=== PATIENT | male | born 1975 | race Caucasian/White ===

== ENCOUNTER 2024-04-22 00:48 | Emergency (ER) | payer MEDICAID, SELFPAY ==
[2024-04-22 01:16] VITALS: BP 180/122; BP 184/138; PULSE 110; RESP 18; TEMP 36.8; O2SAT 96; BMI 32.8
--- NOTE | 2024-04-22 01:23 | PD.EDRME ---
Rapid Medical Screening Exam RME Arrival date/time: 04/22/24 00:48 48-year-old male presents emergency department with at bedside reporting accidentally ingested small water bottle with bleach which caused him to vomit approximately 6 times afterwards. Chief Complaint: Nausea/Vomiting/Diarrhea Time Seen by Provider: 04/22/24 01:06 Vital signs: Vital Signs Temperature 98.3 F 04/22/24 01:16 Pulse Rate 110 H 04/22/24 01:16 Respiratory Rate 18 04/22/24 01:16 Blood Pressure 180/122 H 04/22/24 01:16 Pulse Oximetry (%) 96 04/22/24 01:16 Oxygen Delivery Method Room Air 04/22/24 01:16 Vital signs reviewed by provider: Yes
[2024-04-22 01:31] VITALS: BP 149/111
--- NOTE | 2024-04-22 01:56 | PC.NURSE ---
SPOKE TO [place] FROM POISON CONTROL, AND INFORMED THEM OF PT'S C/O INGESTING SMALL AMOUNT OF BLEACH. PER POISON CONTROL RECOMMENDATIONS ARE SUPPORTIVE CARE AND EXPECT GI DISCOMFORT. MD CARRINGTON MADE AWARE.
--- NOTE | 2024-04-22 02:30 | EDNOTE_ITS ---
ED General RME/HPI General Chief complaint: Nausea/Vomiting/Diarrhea Stated complaint: Ingested Bleach Time Seen by Provider: 04/22/24 01:06 Arrival date/time: 04/22/24 00:48 RME / HPI RME / HPI narrative: 04/22/24 00:48 48-year-old male presents emergency department with at bedside reporting accidentally ingested small water bottle with bleach which caused him to vomit approximately 6 times afterwards. 48-year-old male otherwise healthy presents to the emergency department with accidental ingestion of a small amount of household bleach. He did have 6 episodes of emesis afterwards. He currently has little to no complaints. he did a Google search which advised him to come to the emergency department Related Data Previous Rx's ?Medication ?Instructions ?Recorded erythromycin 5 mg/gram (0.5 %) eye 0.5 inch ophthalmic (eye) BID #1 g 06/18/17 ointment famotidine 40 mg tablet 40 mg PO BID #6 tabs 04/22/24 ondansetron 4 mg disintegrating 4 mg PO Q8H PRN nausea and 04/22/24 tablet vomiting #10 tabs Allergies Allergy/AdvReac Type Severity Reaction Status Date / Time No Known Allergies Allergy Uncoded 06/18/17 15:11 Review of Systems Review of Systems Systems Reviewed: All systems reviewed, normal except as documented ED Exam Narrative Physical exam: GENERAL APPEARANCE: AxOx4, generally well-appearing, no acute distress. HEENT: NC, AT. MMM. EOMI, clear conjunctiva, oropharynx clear. NECK: Supple without lymphadenopathy. No stiffness or restricted ROM. HEART: Normal rate and regular rhythm, normal S1/S1, no m/r/g LUNGS: CTAB, moving air well. No crackles or wheezes are heard. ABDOMEN: Soft, nontender, nondistended with good bowel sounds heard. BACK: No midline C/T/L spine pain or deformity, No CVAT, no obvious deformity. EXTREMITIES: Without cyanosis, clubbing or edema. MUSCULOSKELETAL: FROM of all major joints, no chest tenderness NEUROLOGICAL: Grossly nonfocal. Alert and oriented, moving all 4 extremities. CN not formally tested but appear grossly intact. Observed to ambulate with normal gait. Skin: Warm and dry without any rash. Course Quality Measures none Orders Category Date Time Status EKG (ED ONLY) *Do not use* NOW Care 04/22/24 01:46 Completed EKG (ED Only) Stat Exams 04/22/24 01:46 Ordered Vital Signs Vital signs: Vital Signs Temperature 98.3 F 04/22/24 01:16 Pulse Rate 110 H 04/22/24 01:16 Respiratory Rate 18 04/22/24 01:16 Blood Pressure 180/122 H 04/22/24 01:16 Pulse Oximetry (%) 96 04/22/24 01:16 Oxygen Delivery Method Room Air 04/22/24 01:16 Procedures -ED EKG Interpretation #1: Date of EK04/22/24 Time of EK:55 Rate: 107 Interpretation: Interpreted by me EKG Impression: No acute ST-T changes, Sinus tachycardia, Normal intervals and Normal axis MDM Patient data External records reviewed:: [facility] previous records Clinical information provided by:: patient Social determinants that could affect healthcare access:: none Patient has the following chronic illnesses:: None How is presenting disease/condition affected by chronic disease/condition?: no chronic disease Evaluation data The following diagnostics were reviewed and interpreted by me:: EKG tracing(s) Lab and/or radiology exams considered but not ordered:: None Interpretation Summary: Not applicable Medications Medications considered but not ordered:: None Medication administrations:: None Consultations Consultation(s) initiated? (list below): Yes Consultation #1 (Physician, Specialty, Details): Patient control was contacted and agrees that this is a nontoxic ingestion symptomatic management. Diagnosis Differential Diagnosis ED Complaint MDM: Accidental ingestion, gastritis, esophagitis Most likely diagnosis given after review of the tests above:: See below Admission Indicated Admission indicated?: not indicated Explain why admission is indicated or not indicated:: As per narrative Admission Request Was there a request for admission?: No Disposition Plan Disposition Plan: Discharge Discharge Attestation Discharge Attestation: The patient and all family members were given an opportunity to ask questions and understood the discharge instructions. Discharge instructions specifically effects, indications for sooner follow up or return to the emergency department, and the expected course of current diagnosis. Patient condition: Stable Medical Decision Making MDM Narrative MDM Narrative: Mr. Mae presents emergency department with ingestion of bleach of a nontoxic amount. At this point further workup is not indicated is clinically stable, he can be treated as an outpatient with symptomatic management. Differential Diagnosis Differential Diagnosis: Accidental ingestion, gastritis, esophagitis Discharge Plan Plan Patient Disposition: HOME (Self Care) Prescriptions/Referrals Prescriptions/Med Rec: New ondansetron 4 mg tablet,disintegrating 4 mg PO Q8H PRN (Reason: nausea and vomiting) Qty: 10 0RF famotidine 40 mg tablet 40 mg PO BID Qty: 6 0RF No Action erythromycin 5 mg/gram (0.5 %) ointment 0.5 inch OPHTHALMIC BID Qty: 1 0RF Problem List Clinical Impression: Bleach ingestion Patient/Caregiver Discharge Instructions Education Materials: First Aid: Poisoning Additional Instructions: Household bleach it is quite diluted compared to industrial bleach, you does not ingest a dangerous amount. You can have some stomach upset and nausea associated with it. Please follow a bland diet for the next 24 hours. You can follow-up with your primary care doctor in 2 to 3 days if symptoms persist. Feel free return to emergency department sooner symptoms worsen or if you notice any new, concerning issues Print Language: Kiswahili Stand Alone Forms: [employer] Award Info., Patient Portal Info Letter
== END 2024-04-22 02:11 | disposition home or self-care (01) ==
LOC: SERX 02:13
PROVIDERS: Emergency Provider Emergency Medicine
DX: T54.91XA Toxic effect of unspecified corrosive substance, accidental (unintentional), initial encounter (principal); R11.11 Vomiting without nausea
CPT/HCPCS: 80053; 80307; 80320; 80329; 85025; 93005; 99283; G0480

== ENCOUNTER 2024-06-21 17:50 | Emergency (ER) | payer MEDICAID, SELFPAY ==
[2024-06-21 18:21] VITALS: BP 153/96; PULSE 100; RESP 18; TEMP 37.2; O2SAT 99; BMI 28.7
[2024-06-21] MEDS: NAPROXEN 250 MG TABLET 500 MG PO (18:57)
--- NOTE | 2024-06-21 18:58 | EDNOTE_ITS ---
Upper Respiratory Inf. RME/HPI General Chief Complaint: Flu Like Symptoms Stated Complaint: COUGH, CONGESTION, BODYACHES Time Seen by Provider: 06/21/24 18:31 Arrival date/time: 06/21/24 17:50 49M with no significant PMH presents to ED with 3 days of cough, nasal congestion, and body aches. Limitations: no limitations Related Data Previous Rx's ?Medication ?Instructions ?Recorded erythromycin 5 mg/gram (0.5 %) eye 0.5 inch ophthalmic (eye) BID #1 g 06/18/17 ointment famotidine 40 mg tablet 40 mg PO BID #6 tabs 5 ondansetron 4 mg disintegrating 4 mg PO Q8H PRN nausea and 04/22/24 tablet vomiting #10 tabs Allergies Allergy/AdvReac Type Severity Reaction Status Date / Time No Known Allergies Allergy Uncoded 06/18/17 15:11 Review of Systems Review of Systems Systems Reviewed: All systems reviewed, normal except as documented Constitutional Constitutional: Reports system reviewed and no additional complaints, except as documented, Reports as per HPI, Reports body ache(s), Denies fever(s) and Denies headache(s) ENT Ears, Nose, Mouth, and Throat: Reports as per HPI, Denies disequilibrium, Denies headache(s) and Reports nasal congestion Cardiovascular Cardiovascular: Reports system reviewed and no additional complaints, except as documented, Denies chest pain and Denies dyspnea Respiratory Respiratory: Reports system reviewed and no additional complaints, except as documented, Reports as per HPI, Reports cough and Denies dyspnea Gastrointestinal Gastrointestinal: Reports system reviewed and no additional complaints, except as documented, Denies abdominal pain, Denies nausea and Denies vomiting Neurologic Neurologic: Reports system reviewed and no additional complaints, except as documented, Denies confusion, Denies disequilibrium and Denies headache(s) Psychiatric Psychiatric: Denies confusion Past Medical History Past Medical History CARDIAC: Negative Congestive Heart Failure RESPIRATORY: Negative Chronic Obstructive Pulmonary Disease (COPD) GENITOURINARY: Negative Renal Disease ENDOCRINE: Negative Diabetes Mellitus Type 1 or Diabetes Mellitus Type 2 Social History SMOKING STATUS: Light (< 1 pack/day) ED Exam General Limitations: Present no limitations General appearance: Present alert and in no apparent distress Head Head exam: Present atraumatic Eye Eye exam: Present normal appearance, PERRL and EOMI ENT ENT exam: Present normal exam, normal oropharynx and mucous membranes moist Neck Neck exam: Present normal inspection, full ROM and trachea midline Chest Chest inspection: Present normal inspection and symmetric chest wall rise Respiratory Respiratory exam: Present normal lung sounds bilaterally Cardiovascular Cardiovascular exam: Present regular rate, normal rhythm and normal heart sounds Abdominal Exam Abdominal exam: Present soft and normal bowel sounds Extremities Exam Extremities exam: Present normal inspection and full ROM Back Exam Back exam: Present normal inspection and full ROM Neurological Exam Neurological exam: Present alert, oriented X3 and CN II-XII intact Psychiatric Psychiatric exam: Present normal affect and normal mood Skin Skin exam: Present warm, dry, intact and normal color Course Quality Measures none Orders Category Date Time Status Bedside Influenza A&B Antigen Test NOW Care 06/21/24 18:12 Active Naproxen [Naprosyn] Med 06/21/24 18:32 Discontinued 500 mg PO X1 ONE Vital Signs Vital signs: Vital Signs Temperature 98.9 F 06/21/24 18:21 Pulse Rate 100 06/21/24 18:21 Respiratory Rate 18 06/21/24 18:21 Blood Pressure 153/96 H 06/21/24 18:21 Pulse Oximetry (%) 99 06/21/24 18:21 Oxygen Delivery Method Room Air 06/21/24 18:21 O2 at 99% on RA and WNLs Upper Respiratory Infection MDM Narrative MDM Narrative:: 49M with no significant PMH presents to ED with 3 days of cough, nasal congestio n, and body aches. Physical exam reveals nasal congestion, but clear lungs. Patient is afebrile, calm, and alert. Flu B+. Patient data External records reviewed:: [facility] previous records Clinical information provided by:: patient Social determinants that could affect healthcare access:: none Patient has the following chronic illnesses:: none How is presenting disease/condition affected by chronic disease/condition?: no chronic disease Evaluation data The following diagnostics were reviewed and interpreted by me:: lab results Lab and/or radiology exams considered but not ordered:: ordered Interpretation Summary: above Medications / Prescriptions Medications or Prescriptions considered but not ordered:: ordered Medication administrations:: Medication Administration History Discontinued Medications Naproxen (Naproxen 250 Mg Tablet) 500 mg PO X1 ONE Stop: 06/21/24 18:33 above Consultations Consultation(s) initiated? (list below): No Diagnosis Upper Respiratory Differential Diagnosis: upper respiratory infection, croup, otitis media, sinusitis, viral infection, bronchitis, influenza and pharyngitis Most likely diagnosis given after review of the tests above:: flu B Admission Indicated Admission indicated?: not indicated Admission Request Was there a request for admission?: No Disposition Plan Disposition Plan: Discharge Discharge Attestation Discharge Attestation: The patient and all family members were given an opportunity to ask questions and understood the discharge instructions. Discharge instructions specifically effects, indications for sooner follow up or return to the emergency department, and the expected course of current diagnosis. Patient condition: Stable Discharge Plan Plan Patient Disposition: HOME (Self Care) Disposition Comment: Stable Prescriptions/Referrals Prescriptions/Med Rec: No Action erythromycin 5 mg/gram (0.5 %) ointment 0.5 inch OPHTHALMIC BID Qty: 1 0RF ondansetron 4 mg tablet,disintegrating 4 mg PO Q8H PRN (Reason: nausea and vomiting) Qty: 10 0RF famotidine 40 mg tablet 40 mg PO BID Qty: 6 0RF Problem List Clinical Impression: Influenza B Patient/Caregiver Discharge Instructions Education Materials: ED Influenza (Adult) Additional Instructions: Please follow-up with PCP within 24-48 hours and return immediately if symptoms worsen. Ibuprofen/Tylenol can be used simultaneously for greater fever/pain control. Benadryl is good for cough, congestion, and sleep. Print Language: [place] Stand Alone Forms: Patient Portal Info Letter ANTOINETTE/LUSTER APPLICATOR Supervising Physician ANTOINETTE/MAX Supervising Physician: Dr. Tracy
== END 2024-06-21 19:25 | disposition home or self-care (01) ==
LOC: SERX 18:35
PROVIDERS: Emergency Provider Emergency Medicine; PCP Family Medicine
DX: J10.1 Influenza due to other identified influenza virus with other respiratory manifestations (principal)
CPT/HCPCS: 99283; A9270